=== PATIENT | male | born 1955 | race Hispanic/Latino ===

== ENCOUNTER 2022-04-29 05:50 | Observation (INO) | payer OTHER ==
[2022-04-25 13:00] LABS: PROTHROMBIN TIME 10.9 SEC (9.6-11.6)
[2022-04-25 13:01] LABS: PARTIAL THROMBOPLASTIN TIME 27.8 SEC (26.3-35.5)
[2022-04-28 11:08] VITALS: BP 144/81
[2022-04-29] VITALS (26 sets, daily range): BP systolic 118–148; BP diastolic 64–88
[~2022-04-29] VITALS: Ht 170.2 cm; Wt 94.6 kg
[~2022-04-29 05:50] MED LIST: AEC81 PO; ATOR10TA69 PO; BUPIVACAINE/PF 0.5% 30ML VIAL ONE; METAMUCIL PO; MVI PO; OMEP40CA21 PO; TRANEXAMIC ACID 1000MG/10ML ONE; TRAZ-185 PO; VITAMIN D3 PO
[2022-04-29] MEDS ORDERED: CEFAZOLIN SODIUM 2 GM VIAL ONE (06:38)
[2022-04-29] MEDS ORDERED: LACTATED RINGERS 1000ML 1,000 ML IV ONE (06:38)
[2022-04-29 06:42] LABS: BASOPHILS % (AUTO) 0.8 % (0.0-5.0); EOSINOPHILS % (AUTO) 4.6 % (0.0-8.0); HEMATOCRIT 41.7 % (42-54); LYMPHOCYTES % (AUTO) 20.5 % (21.0-51.0); MEAN CORPUSCULAR HEMOGLOBIN 30.5 pg (27.0-33.0); MEAN CORPUSCULAR HGB CONC 33.1 g/dL (32.0-36.0); MEAN CORPUSCULAR VOLUME 92.1 fL (79-99); MONOCYTES % (AUTO) 9.6 % (3.0-13.0); NEUTROPHILS % (AUTO) 64.3 % (40.0-77.0); PLATELET COUNT (AUTO) 272 K/uL (130-400); RED BLOOD CELL COUNT(AUTO) 4.53 MIL/uL (4.50-6.20); RED CELL DISTRIBUTION WIDTH 12.6 % (11.0-15.5); WHITE BLOOD COUNT (AUTO) 6.4 K/uL (4.8-10.8)
[2022-04-29] MEDS ORDERED: MIDAZOLAM HCL 1 MG/ML 2ML VIAL ONE (07:08)
[2022-04-29] MEDS ORDERED: LIDOCAINE PF 100MG/5ML (2%) SYRINGE 5ML ONE (07:08)
[2022-04-29] MEDS ORDERED: PROPOFOL 10 MG/ML 20ML VIAL IV ONE (07:08)
[2022-04-29] MEDS ORDERED: FENTANYL CITRATE PF 50 MCG/1 ML 2ML VIAL ONE ×2 (07:08→10:07)
[2022-04-29] MEDS ORDERED: SUCCINYLCHOLINE 200MG/10ML SYR ONE (07:08)
[2022-04-29] MEDS ORDERED: ROCURONIUM 10MG/1ML SYR 10 MG/ML ML ONE ×2 (07:08→08:25)
[2022-04-29] MEDS ORDERED: CEFAZOLIN SODIUM 2 GM VIAL IVPB ONE (07:28)
[2022-04-29] MEDS ORDERED: TRANEXAMIC ACID 1000MG/10ML IV ONE (07:36)
[2022-04-29] MEDS ORDERED: PHENYLEPHRINE HCL 10 MG/ML 1ML VIAL IV ONE (07:45)
[2022-04-29] MEDS ORDERED: BUPIVACAINE/PF 0.5% 30ML VIAL INJ ONE (08:02)
[2022-04-29] MEDS: CEFAZOLIN SODIUM 2 GM VIAL IVPB SCH ×2 (08:30→23:55)
[2022-04-29] MEDS ORDERED: PANTOPRAZOLE 40 MG TAB DR PO PRN (09:30)
[2022-04-29] MEDS ORDERED: LIDOCAINE HCL-MPF 1% 2ML VIAL IV PRN (09:30)
[2022-04-29] MEDS ORDERED: POTASSIUM CHLORIDE 20MEQ/100ML 100 ML IV PRN (09:30)
[2022-04-29] MEDS ORDERED: FERROUS FUMARATE 324 MG TABLET PO PRN (09:30)
[2022-04-29] MEDS ORDERED: ONDANSETRON 4MG INJ IVP PRN (09:30)
[2022-04-29] MEDS ORDERED: KCL 20 MEQ ERTAB PO PRN (09:30)
[2022-04-29] MEDS: 0.9%NACL 1000ML 1,000 ML IV SCH ×2 (09:30→20:48)
[2022-04-29] MEDS ORDERED: HYDROCODONE/ACETAMINOPHEN 5/325 MG TAB PO PRN (09:30)
[2022-04-29] MEDS ORDERED: POTASSIUM CHLORIDE 10% ELIXIR 20 MEQ/15 ML UDCUP PO PRN (09:30)
[2022-04-29] MEDS ORDERED: MEPERIDINE-PF 25 MG/ML SYG ONE (09:49)
[2022-04-29] MEDS: ACETAMINOPHEN 1,000 MG/100 ML VIAL IV SCH ×3 (10:26→23:55)
[2022-04-29] MEDS: MORPHINE 4 MG SYG IVP PRN (11:51)
[2022-04-29] MEDS: TRAMADOL HCL 50 MG TABLET PO SCH ×3 (13:10→23:56)
[2022-04-29] MEDS ORDERED: GLYCOPYRROLATE 1 MG/5 ML SYRINGE ONE (13:50)
[2022-04-29] MEDS: IBUPROFEN 800MG + NS 250ML IV SCH ×2 (13:56→21:43)
[2022-04-29] MEDS: CEFAZOLIN SODIUM 1 GM VIAL IVPB SCH ×2 (16:08→22:30)
[2022-04-29] MEDS: FAMOTIDINE 20MG TAB PO SCH (20:43)
[2022-04-29] MEDS: TRAZODONE HCL 50 MG TAB PO SCH (20:43)
[2022-04-29] MEDS: ASPIRIN 81 MG EC TAB PO SCH (20:44)
[2022-04-29] MEDS: HYDROCODONE/ACETAMINOPHEN 10/325 MG TAB PO PRN (20:44)
[2022-04-30] VITALS: BP 109/59
[2022-04-30 04:00] VITALS: BP 110/57
[2022-04-30] MEDS: IBUPROFEN 800MG + NS 250ML IV SCH (05:28)
[2022-04-30] MEDS: TRAMADOL HCL 50 MG TABLET PO SCH ×3 (05:28→17:55)
[2022-04-30] MEDS: 0.9%NACL 1000ML 1,000 ML IV SCH (05:47)
[2022-04-30 05:59] LABS: HEMATOCRIT 35.2 % (42-54); MEAN CORPUSCULAR HEMOGLOBIN 30.8 pg (27.0-33.0); MEAN CORPUSCULAR HGB CONC 33.2 g/dL (32.0-36.0); MEAN CORPUSCULAR VOLUME 92.6 fL (79-99); RED BLOOD CELL COUNT(AUTO) 3.8 MIL/uL (4.50-6.20); RED CELL DISTRIBUTION WIDTH 12.8 % (11.0-15.5); WHITE BLOOD COUNT (AUTO) 10.1 K/uL (4.8-10.8)
[2022-04-30 06:08] LABS: CREATININE 0.8 mg/dL (0.5-1.5); POTASSIUM 4.1 mmol/L (3.5-5.1)
[2022-04-30 08:00] VITALS: BP 106/65
[2022-04-30] MEDS ORDERED: ROPIVICAINE 250MG+KETOROLAC 15MG+EPINEPHRINE 0.3+CLONIDINE 80 IV PRN ×5 (08:00)
[2022-04-30] MEDS: FAMOTIDINE 20MG TAB PO SCH ×2 (08:30→20:17)
[2022-04-30] MEDS: POLYETHYLENE GLYCOL 3350 17 GM POWD.PACK PO SCH (08:30)
[2022-04-30] MEDS: ASPIRIN 81 MG EC TAB PO SCH ×2 (08:30→20:17)
[2022-04-30] MEDS: TAMSULOSIN HCL 0.4 MG CAP.ER.24H PO SCH (08:30)
[2022-04-30] MEDS: **HM** VIT D3 5000 UNITS PO SCH (08:36)
[2022-04-30] MEDS: MORPHINE 4 MG SYG IVP PRN (10:48)
[2022-04-30 11:30] VITALS: BP 128/68
[2022-04-30] MEDS: HYDROCODONE/ACETAMINOPHEN 10/325 MG TAB PO PRN (13:47)
[2022-04-30 16:00] VITALS: BP 128/69
[2022-04-30 20:00] VITALS: BP 136/82
[2022-04-30] MEDS: TRAZODONE HCL 50 MG TAB PO SCH (20:17)
[2022-05-01] VITALS: BP 120/78
[2022-05-01] MEDS: TRAMADOL HCL 50 MG TABLET PO SCH ×3 (00:39→12:20)
[2022-05-01 04:00] VITALS: BP 125/68
[2022-05-01] MEDS: HYDROCODONE/ACETAMINOPHEN 10/325 MG TAB PO PRN (04:26)
[2022-05-01 08:00] VITALS: BP 131/70
[2022-05-01] MEDS: CEFAZOLIN SODIUM 2 GM VIAL IVPB SCH (08:30)
[2022-05-01] MEDS: **HM** VIT D3 5000 UNITS PO SCH (09:00)
[2022-05-01] MEDS: FAMOTIDINE 20MG TAB PO SCH (10:14)
[2022-05-01] MEDS: ASPIRIN 81 MG EC TAB PO SCH (10:14)
[2022-05-01] MEDS: POLYETHYLENE GLYCOL 3350 17 GM POWD.PACK PO SCH (10:14)
[2022-05-01] MEDS: TAMSULOSIN HCL 0.4 MG CAP.ER.24H PO SCH (10:14)
[2022-05-01] MEDS: MORPHINE 4 MG SYG IVP PRN (10:18)
[2022-05-01 12:02] VITALS: BP 123/66
[2022-05-01 16:00] VITALS: BP 134/74
[2022-05-02] MEDS ORDERED: BISACODYL 10 MG SUPP.RECT RC PRN (09:30)
== END 2022-05-01 17:45 | disposition home or self-care (01) ==
LOC: DAH 05:50 → DAHIP 05:51 → 3BH 11:25
PROVIDERS: ADMIT Orthopaedic Surgery; ATTEND Orthopaedic Surgery
DX: M17.12 Unilateral primary osteoarthritis, left knee (principal); Z20.822 Contact with and (suspected) exposure to COVID-19; M21.162 Varus deformity, not elsewhere classified, left knee; E66.9 Obesity, unspecified; Z68.30 Body mass index [BMI] 30.0-30.9, adult; Z79.899 Other long term (current) drug therapy
CPT/HCPCS: 85610; 85730; 87426; 36415 ×3; 87641; 27447; 0055T; 96376 ×3; 96365; 96366 ×2; 96375; 96367; 85025; 82948; 97161; 97039 ×5; 97530 ×5; 80048; 85027; 97116 ×4; C1776 ×4; G0378 ×53; A4663; J7030; J7120 ×2; A4649 ×4; J3010 ×2; J0690 ×4; J3490 ×5; J0330; J2001; J2250; J2704; J2405 ×2; J2270 ×3; J2175; J2370; J1741 ×2; A6223; A6219; G0168; A6255; A6254; A5120; A4215; A4223; A4222; A4221

== ENCOUNTER 2022-08-06 06:45 | Observation (INO) | payer OTHER ==
[2022-08-01 11:30] LABS: BASOPHILS % (AUTO) 0.8 % (0.0-5.0); EOSINOPHILS % (AUTO) 2.1 % (0.0-8.0); HEMATOCRIT 44.8 % (42-54); LYMPHOCYTES % (AUTO) 24.6 % (21.0-51.0); MEAN CORPUSCULAR HEMOGLOBIN 30.1 pg (27.0-33.0); MEAN CORPUSCULAR VOLUME 91.1 fL (79-99); MONOCYTES % (AUTO) 9.1 % (3.0-13.0); NEUTROPHILS % (AUTO) 63.1 % (40.0-77.0); PLATELET COUNT (AUTO) 296 K/uL (130-400); RED BLOOD CELL COUNT(AUTO) 4.92 MIL/uL (4.50-6.20); RED CELL DISTRIBUTION WIDTH 13.1 % (11.0-15.5); WHITE BLOOD COUNT (AUTO) 6.3 K/uL (4.8-10.8)
[2022-08-01 11:39] VITALS: BP 143/80
[2022-08-01 11:47] LABS: CREATININE 0.9 mg/dL (0.5-1.5); POTASSIUM 4.6 mmol/L (3.5-5.1)
[2022-08-01 12:05] LABS: PROTHROMBIN TIME 10.9 SEC (9.6-11.6)
[2022-08-01 12:06] LABS: PARTIAL THROMBOPLASTIN TIME 28.4 SEC (26.3-35.5)
[~2022-08-06] VITALS: Ht 167.6 cm; Wt 93.7 kg
[2022-08-06] VITALS (30 sets, daily range): BP systolic 114–149; BP diastolic 50–87
[~2022-08-06 06:45] MED LIST changes: -BUPIVACAINE/PF 0.5% 30ML VIAL ONE; +CYAN50009 PO; -METAMUCIL PO; +SENN-307 PO; -TRANEXAMIC ACID 1000MG/10ML ONE; -TRAZ-185 PO; -VITAMIN D3 PO
[2022-08-06] MEDS ORDERED: LACTATED RINGERS 1000ML 1,000 ML IV ONE (07:52)
[2022-08-06] MEDS: CEFAZOLIN SODIUM 2 GM VIAL ONE ×2 (08:02→10:03)
[2022-08-06] MEDS ORDERED: TRANEXAMIC ACID 1000MG/10ML ONE (08:49)
[2022-08-06] MEDS ORDERED: FAMOTIDINE 20MG VIAL IV ONE (09:02)
[2022-08-06] MEDS ORDERED: HYDROMORPHONE 1 MG INJ ONE (09:02)
[2022-08-06] MEDS ORDERED: LIDOCAINE PF 100MG/5ML (2%) SYRINGE 5ML ONE (09:05)
[2022-08-06] MEDS ORDERED: PROPOFOL 10 MG/ML 20ML VIAL IV ONE (09:05)
[2022-08-06] MEDS ORDERED: GLYCOPYRROLATE 1 MG/5 ML SYRINGE ONE (09:05)
[2022-08-06] MEDS ORDERED: ROCURONIUM 10MG/1ML SYR 10 MG/ML ML ONE (09:06)
[2022-08-06] MEDS ORDERED: FENTANYL CITRATE PF 50 MCG/1 ML 2ML VIAL ONE ×4 (09:06→12:49)
[2022-08-06] MEDS ORDERED: ROPIVACAINE 0.5% 5MG/ML 30ML IJ ONE (09:07)
[2022-08-06] MEDS ORDERED: HYDROCODONE/ACETAMINOPHEN 5/325 MG TAB PO PRN (10:30)
[2022-08-06] MEDS ORDERED: POTASSIUM CHLORIDE 10% ELIXIR 20 MEQ/15 ML UDCUP PO PRN (10:30)
[2022-08-06] MEDS ORDERED: ONDANSETRON 4MG INJ IVP PRN (10:30)
[2022-08-06] MEDS ORDERED: KCL 20 MEQ ERTAB PO PRN (10:30)
[2022-08-06] MEDS ORDERED: POTASSIUM CHLORIDE 20MEQ/100ML 100 ML IV PRN (10:30)
[2022-08-06] MEDS ORDERED: PANTOPRAZOLE 40 MG TAB DR PO PRN (10:30)
[2022-08-06] MEDS ORDERED: ONDANSETRON 4MG INJ ONE (11:12)
[2022-08-06] MEDS: TRAMADOL HCL 50 MG TABLET PO SCH ×3 (12:00→23:05)
[2022-08-06] MEDS ORDERED: NEOSTIGMINE 5MG/5ML SYR IV ONE (12:12)
[2022-08-06] MEDS: ACETAMINOPHEN 1,000 MG/100 ML VIAL IV SCH ×3 (12:39→23:04)
[2022-08-06] MEDS: IBUPROFEN 800MG + NS 250ML IV SCH ×2 (13:54→19:27)
[2022-08-06] MEDS ORDERED: PROMETHAZINE HCL 25 MG/ML 1ML AMPULE IM ONE (16:30)
[2022-08-06] MEDS: CEFAZOLIN SODIUM 1 GM VIAL IVPB SCH ×2 (19:26→23:04)
[2022-08-06] MEDS: FAMOTIDINE 20MG TAB PO SCH (19:32)
[2022-08-06] MEDS: 0.9%NACL 1000ML 1,000 ML IV SCH (19:35)
[2022-08-07 04:05] VITALS: BP 139/72
[2022-08-07] MEDS: HYDROCODONE/ACETAMINOPHEN 10/325 MG TAB PO PRN ×3 (05:11→20:07)
[2022-08-07] MEDS: IBUPROFEN 800MG + NS 250ML IV SCH (05:11)
[2022-08-07] MEDS: TRAMADOL HCL 50 MG TABLET PO SCH ×4 (05:14→23:27)
[2022-08-07 05:18] LABS: HEMATOCRIT 38.8 % (42-54); MEAN CORPUSCULAR HEMOGLOBIN 30.4 pg (27.0-33.0); MEAN CORPUSCULAR HGB CONC 33.2 g/dL (32.0-36.0); MEAN CORPUSCULAR VOLUME 91.3 fL (79-99); RED BLOOD CELL COUNT(AUTO) 4.25 MIL/uL (4.50-6.20); RED CELL DISTRIBUTION WIDTH 13.4 % (11.0-15.5); WHITE BLOOD COUNT (AUTO) 9.8 K/uL (4.8-10.8)
[2022-08-07 05:40] LABS: POTASSIUM 4.1 mmol/L (3.5-5.1)
[2022-08-07] MEDS: 0.9%NACL 1000ML 1,000 ML IV SCH (06:16)
[2022-08-07] MEDS: POLYETHYLENE GLYCOL 3350 17 GM POWD.PACK PO SCH (07:46)
[2022-08-07] MEDS: FAMOTIDINE 20MG TAB PO SCH ×2 (07:50→20:03)
[2022-08-07] MEDS: ASPIRIN 81 MG EC TAB PO SCH ×2 (07:50→20:03)
[2022-08-07] MEDS: MULTIVITAMIN TABLET PO SCH (07:50)
[2022-08-07 08:14] VITALS: BP 122/65
[2022-08-07] MEDS: MORPHINE 4 MG SYG IVP PRN ×2 (08:31→22:26)
[2022-08-07 11:00] VITALS: BP 135/66
[2022-08-07 16:00] VITALS: BP 147/77
[2022-08-07 19:25] VITALS: BP 137/69
[2022-08-07 23:39] VITALS: BP 131/71
[2022-08-08] MEDS: HYDROCODONE/ACETAMINOPHEN 10/325 MG TAB PO PRN ×2 (03:46→09:00)
[2022-08-08 04:17] VITALS: BP 119/75
[2022-08-08] MEDS: TRAMADOL HCL 50 MG TABLET PO SCH ×2 (05:22→11:38)
[2022-08-08 08:00] VITALS: BP 123/71
[2022-08-08] MEDS: ASPIRIN 81 MG EC TAB PO SCH (09:01)
[2022-08-08] MEDS: FAMOTIDINE 20MG TAB PO SCH (09:01)
[2022-08-08] MEDS: MULTIVITAMIN TABLET PO SCH (09:01)
[2022-08-08] MEDS: POLYETHYLENE GLYCOL 3350 17 GM POWD.PACK PO SCH (09:01)
[2022-08-08 12:00] VITALS: BP 142/84
[2022-08-09] MEDS ORDERED: BISACODYL 10 MG SUPP.RECT RC PRN (10:30)
== END 2022-08-08 14:30 | disposition home or self-care (01) ==
LOC: DAH 06:45 → DAHIP 06:46 → DAH 06:46 → 4DH 17:30
PROVIDERS: ADMIT Orthopaedic Surgery; ATTEND Orthopaedic Surgery
DX: M17.11 Unilateral primary osteoarthritis, right knee (principal); Z20.822 Contact with and (suspected) exposure to COVID-19; K21.9 Gastro-esophageal reflux disease without esophagitis; E66.9 Obesity, unspecified; Z79.899 Other long term (current) drug therapy
CPT/HCPCS: 80048 ×2; 85025; 85610; 85730; 87426; 36415 ×2; 87641; 64447; 27447; 96376 ×2; 96372; 96365; 96366 ×2; 96375 ×2; 96367; 97161; 97530; 85027; 97039 ×4; 97116 ×4; A6260; C1776 ×4; G0378 ×47; A4663; J7030; J7120 ×2; J3490 ×3; J3010 ×4; J0690 ×3; J1170; J2710; J2550; J2001; J2704; J2405 ×2; J2795; J1741 ×4; A6223; A4649 ×4; G0168; A6212; A5120; A4215; A4223; A4222; A4221; J2270 ×2